=== PATIENT | female | born 1945 | race Caucasian/White ===

== ENCOUNTER 2016-09-17 14:33 | Inpatient (IN) ==
[2016-09-17] MEDS ORDERED: NS 1,000 ML IV ONE (16:10)
[2016-09-17] MEDS ORDERED: ZOFRAN IV ONE (16:14)
[2016-09-17] MEDS ORDERED: MORPHINE IV ONE (16:14)
[2016-09-17 16:43] LABS: URINE CULTURE NEEDED? NO; URINE MICRO REVIEW NEEDED? NO; URINE SOURCE CLEAN CATCH
[2016-09-17 16:46] LABS: BILIRUBIN URINE NEGATIVE (NEGATIVE); BLOOD URINE NEGATIVE (NEGATIVE); COLOR YELLOW; GLUCOSE URINE NEGATIVE (NEGATIVE); LEUKOCYTES URINE NEGATIVE (NEGATIVE); NITRITE URINE NEGATIVE (NEGATIVE); PH URINE 5.5; PROTEIN URINE NEGATIVE (NEGATIVE); SP GRAVITY URINE 1.027; TURBIDITY URINE HAZY (CLEAR); UR EPITHELIAL CELLS >10 /HPF (<10); URINE BACTERIA NEGATIVE /HPF; URINE RBC <10 /HPF (<10); URINE WBC <10 /HPF (<10); UROBILINOGEN URINE NORMAL (NORMAL)
[2016-09-17 17:01] LABS: BASO% 0.2 % (0.0-0.8); EOS% 1.6 % (0.0-10.0); HEMATOCRIT 44.9 % (37.0-47.0); HEMOGLOBIN 14.8 g/dL (12.0-16.0); LYMPH# 0.29 X1000 (1.2-3.4); LYMPH% 4.7 % (20.5-51.1); MANUAL DIFF NEEDED? NO; MCH 29.9 PG (27-31); MCV 90.7 FL (81-99); MONO# 0.34 X1000 (0.11-0.59); MONO% 5.5 % (1.7-9.3); MPV 9.7 FL (7.4-10.4); PLT 211 X1000 (130-400); RBC 4.95 XMIL (4.2-5.4)
[2016-09-17 17:06] LABS: AGAP 10; ALBUMIN 4.2 g/dL (3.5-5.0); ALKALINE PHOSPHATASE 73 U/L (32-104); AMYLASE 96 U/L (20-200); BUN 23 mg/dL (8-22); CALCIUM 8.8 mg/dL (8.8-10.2); CHLORIDE 99 mmol/L (98-107); COSMO 273; GOT 26 U/L (10-30); GPT 22 U/L (10-36); LIPASE 87 U/L (13-60); POTASSIUM 4.2 mmol/L (3.5-5.1); SODIUM 135 mmol/L (136-145); TCO2 26 mmol/L (25-35); TOTAL BILIRUBIN 0.53 mg/dL (0.20-1.00); TOTAL PROTEIN 6.7 g/dL (6.3-8.3)
[2016-09-17] MEDS ORDERED: SODIUM CHLORIDE 0.9% INJ ONE (17:24)
[2016-09-17] MEDS ORDERED: PEPCID IV ONE (17:24)
--- NOTE | 2016-09-17 17:52 | PROVIDER DOCUMENTATION ---
This chart was entered by Osmani Tesfaye Scribe, acting as scribe for Robson Hsu MD. HPI-Abdominal Pain/GI Problem - General Chief Complaint: Abdominal Pain Stated Complaint: ABD/BACK PAIN Time Seen by Provider: 09/17/16 15:57 Source: patient Allergies/Adverse Reactions: Patient Allergies Allergy/AdvReac Type Severity Reaction Status Date / Time codeine AdvReac Mild NAUSEA/VOMI Verified 09/17/16 15:46 TING meperidine [From Demerol] AdvReac Mild NAUSEA Verified 09/17/16 15:45 - History of Present Illness-ABD Nature of Presenting Problems: patient is a 71 y/o F that presents with abdominal pain and n/d x 5 to 6 days. Bloating and gas as well. No vomiting, fever/chills, or shortness of breath. Pain radiates to her back. History of diverticulitis, diverticulosis, and obstruction. feels like her previous obstructions minus shortness of breath. Abdominal Pain Onset Location: reports: RUQ, RLQ Pain Radiation: reports: back Quality of Pain: reports: cramping, pressure, sharp Severity in ED: reports: moderate Onset/Duration: reports: abrupt, 5 days ago Timing: reports: still present, constant, getting worse Activities at Onset: reports: none Modifying Factors: improves with: nothing Associated Symptoms: reports: back/neck pain, diarrhea, fever/chills, nausea. denies: constipation, cough, genitourinary problems, muscle aches, rash, shortness of breath, vomiting Similar Symptoms Previously?: Yes Recently seen or treated by another doctor?: No Review of Systems - Adult - REVIEW OF SYSTEMS - ADULT Constitutional: denies: chills, fever Eyes: reports: no symptoms reported Ears, Nose, Mouth & Throat: reports: no symptoms reported Cardiovascular: denies: chest pain, palpitations, syncope Respiratory: denies: shortness of breath, wheezing Gastrointestinal: reports: abdominal pain, diarrhea, nausea. denies: constipation, rectal bleeding Genitourinary: denies: dysuria, frequency, hematuria Musculoskeletal: reports: back pain. denies: joint pain, neck pain Integumentary: reports: no symptoms reported Neurological: reports: no symptoms reported Psychiatric: reports: no symptoms reported Endocrine: reports: no symptoms reported Hematologic/Lymphatic: reports: no symptoms reported Allergic/Immunologic: reports: no symptoms reported All Other Systems: Reviewed and Negative Past History - Adult - PAST MEDICAL HISTORY-ADULT Review of Records: reports: Nursing Assessment Review, Medications Reviewed Gastrointestinal: reports: diverticulosis, obstruction, other (diverticulitis) Physical Exam-General - PHYSICAL EXAM-ADULT Initial Vital Signs Reviewed: Yes - CONSTITUTIONAL General Appearance: alert, mild distress - EYES Eyes: PERRL/EOMI, pink conjunctivae - HEAD, EARS, NOSE, MOUTH & THROAT HENMT: normocephalic/atraumatic, moist mucous membranes, normal ENT inspection - NECK Neck: full range of motion, normal inspection - RESPIRATORY Respiratory: lungs clear, normal breath sounds, no respiratory distress, no accessory muscle use - CARDIOVASCULAR Cardiovascular: regular rate, rhythm, no edema, no murmur - GASTROINTESTINAL (ABDOMEN) Abdominal Exam: normal bowel sounds, soft, no organomegaly, no pulsatile mass, tenderness (right sided) - MUSCULOSKELETAL Back Exam: no CVA tenderness, no vertebral tenderness Extremity: normal range of motion, normal inspection, no pedal edema - SKIN Integumentary: normal color, warm/dry - NEUROLOGIC Neurologic: grossly normal, no motor/sensory deficits - PSYCHIATRIC Psych/Mental Status: normal mood/affect, normal thought content, normal thought process, oriented x 3 Progress - PLAN OF CARE/RESULTS Progress/Plan/Lab Results: Vital Signs - 8 hr 09/17/16 14:41 Temperature 98.8 F Pulse Rate 71 Respiratory Rate 20 Blood Pressure 109/55 O2 Sat by Pulse Oximetry 100 reeval pt with worsening pain now including the epigastric area. will admit for hydration pain management and observation to eval for partial sbo vs ilius and pancreatitis. pt and family agree with this plan. hospitalist notified pt also followed by dr bal will come to eval the pt in the ED Result Diagrams: 09/17/16 16:28 09/17/16 16:28 Departure - Departure Date of Disposition Decision: 09/17/16 Time of Disposition Decision: 18:15 DIAGNOSIS: Partial obstruction of small intestine Pancreatitis Qualifiers: Chronicity: acute Pancreatitis type: other Acute pancreatitis complication: no infection or necrosis Qualified Code(s): K85.80 - Other acute pancreatitis without necrosis or infection Disposition: ADMITTED INPATIENT 09 Certified Medical Emergency: Emergent Condition: Fair Referrals and Follow-Ups: Ancelmo Metcalf MD [Primary Care Provider] - - Critical Care Note This patient required my direct & personal management of CC.: No This chart was documented by the indicated scribe, (Osmani Tesfaye, Taty) and accurately reflects the services I performed and decisions made by me, Robson Hsu MD, as attested by the provider's signature.
--- NOTE | 2016-09-17 18:19 | Diag Imaging Result Doc PS360 ---
EXAM: CT ABD/PELVIS W/ IV CONT ONLY HISTORY: abd pain eval obstruction +h/o TECHNIQUE: Dose reduction protocol COMPARISON: 01/21/2015 FINDINGS: The gallbladder has been removed. Mild biliary ductal dilatation is slightly more prominent than on the prior exam. No other focal hepatic abnormality. Normal spleen, pancreas, and adrenal glands. Normal enhancement of the kidneys. No hydronephrosis. Normal aorta. There is stool throughout the colon. The appendix may have been removed. Nonspecific fluid-filled loops of small bowel. No free air. No abscess. The urinary bladder is distended and appears normal. The uterus is small or has been removed. Questionable soft tissue fullness about the rectum. IMPRESSION: 1.Cholecystectomy with mild biliary dilatation 2.Possible ileus 3.Constipation 4.Questionable rectal thickening 5.A preliminary report was given at 5:51 PM Electronically signed by Todd Vega 09/17/2016 6:16 PM
--- NOTE | 2016-09-17 19:08 | HISTORY AND PHYSICAL ---
PCP: Dr. Metcalf. CHIEF COMPLAINT: Abdominal pain, nausea but no vomiting, diarrhea. HISTORY OF PRESENT ILLNESS: The patient is a 71-year-old white female with a history of trouble with her GI tract on chronic MiraLAX presented to the emergency room after 2 days of diarrhea. The patient has not had any diarrhea since this morning but still having a lot of cramping pain with nausea. She was able to take Gatorade just fine. She afraid to eat. Has mild nausea. She came in because feeling like she is dehydrated. She denies taking any medications for diarrhea. She report having some chill but no fevers, denied eating anything out of the ordinary, denies having any sick contact. The patient has had this problem off and on for a number of years has been seeing Dr. Elizabeth who sent the patient to the [facility] and the last time she went up to the [facility] was over a year and a half ago. She had multiple surgeries to her abdomen 4 to be exact the last 1 about 15 years ago when she had the small bowel obstruction. They had to go in and lysed the adhesion, per the patient Dr. Galicia told her that her colon would twist and turn and he does not want anybody around her to operate on her and wants the [facility] to evaluate her and may perhaps to do the surgery up there. No other complaints. Her pain is somewhat under control with morphine that she was giving in the hospital. Nausea under control with Zofran. PAST MEDICAL HISTORY: 1. Hypothyroidism. 2. Recurrent irritable bowel syndrome alternate between diarrhea and constipation. PAST SURGICAL HISTORY: 1. She has a hysterectomy. 2. Oophorectomy. 3. Colectomy. 4. Abdominal adhesion lysis. ALLERGIES: The patient allergic to codeine and Demerol. FAMILY HISTORY: Was reviewed, was noncontributory. SOCIAL HISTORY: The patient denies tobacco, alcohol or drugs. HOME MEDICATIONS: 1. MiraLAX daily. 2. Synthroid. REVIEW OF SYSTEMS: 12 system were reviewed and were negative except for what is mentioned on HPI. PHYSICAL EXAMINATION: VITAL SIGNS: Blood pressure 100/54, pulse of 53, respirations 16, temperature 98.8 degrees, saturations of 100% on room air. GENERAL APPEARANCE: Thin, cachectic white female in mild distress. HEENT: Anicteric. Clear conjunctivae. NECK: Supple. No JVD. No bruit. CARDIOVASCULAR: S1, S2. Normal rate and rhythm. No murmur, rubs, or gallops. PULMONARY: Clear to auscultation bilaterally. GI: Soft, mild tender on the right lower quadrant. Hypoactive bowel sounds. MUSCULOSKELETAL: No clubbing, cyanosis, or edema. INTEGUMENT: Skin is dry. LABORATORY: White count 6.17, hemoglobin 14.8, hematocrit 44.9, platelets of 211,000. Chemistry, sodium 135, potassium 4.2, chloride 99, bicarb 26, BUN 23, creatinine 0.9, glucose of 81, lipase is mildly elevated at 87. CAT scan of the abdomen and pelvis did show some fluid level, no obstruction, no ileus. ASSESSMENT AND PLAN: This is a 71-year-old white female with a history of gastrointestinal issue admitted to the hospital for dehydration after she was having diarrhea and nausea unable to take much p.o. 1. Dehydration secondary to diarrhea and poor p.o. intake. Start the patient on IV fluids. Start her on a clear liquid diet. Keep patient NPO overnight. Consult Dr. Galicia in the morning. 2. Irritable bowel syndrome. Again as above, p.r.n. Center for pain. 3. Deep vein thrombosis prophylaxis. Put the patient on Lovenox. 4. Code status. The patient is a full code. 5. Hypothyroidism. Continue Synthroid. Will put the patient under observation and will consult GI in the morning as mentioned above. cc: Ancelmo Metcalf MD
[2016-09-17] MEDS ORDERED: LOVENOX SUBQ SCH (19:35)
[2016-09-17] MEDS ORDERED: NORCO-7.5 PO PRN (19:35)
[2016-09-17] MEDS ORDERED: ZOFRAN IV PRN (19:35)
[2016-09-17] MEDS: NS 1,000 ML IV SCH (20:22)
[2016-09-18 07:51] LABS: MANUAL DIFF NEEDED? NO
[2016-09-18 08:06] LABS: BASO% 0.7 % (0.0-0.8); EOS# 0.08 X1000 (0.0-0.7); HEMATOCRIT 38.6 % (37.0-47.0); HEMOGLOBIN 12.4 g/dL (12.0-16.0); LYMPH# 0.66 X1000 (1.2-3.4); LYMPH% 24.4 % (20.5-51.1); MCH 29.5 PG (27-31); MCHC 32.1 g/dL (33-37); MCV 91.7 FL (81-99); MONO# 0.32 X1000 (0.11-0.59); MONO% 11.9 % (1.7-9.3); MPV 10.2 FL (7.4-10.4); PLT 197 X1000 (130-400); RBC 4.21 XMIL (4.2-5.4)
[2016-09-18 08:12] LABS: AGAP 11; ALBUMIN 3.2 g/dL (3.5-5.0); ALKALINE PHOSPHATASE 87 U/L (32-104); BUN 15 mg/dL (8-22); CALCIUM 8.3 mg/dL (8.8-10.2); CHLORIDE 106 mmol/L (98-107); COSMO 281; GOT 72 U/L (10-30); GPT 65 U/L (10-36); SODIUM 141 mmol/L (136-145); TCO2 24 mmol/L (25-35); TOTAL BILIRUBIN 0.38 mg/dL (0.20-1.00); TOTAL PROTEIN 5.3 g/dL (6.3-8.3)
[2016-09-18] MEDS: PRILOSEC PO SCH (09:00)
[2016-09-18] MEDS: NS 1,000 ML IV SCH (10:14)
[2016-09-18] MEDS ORDERED: GOLYTELY PO ONE (14:00)
--- NOTE | 2016-09-18 16:28 | CONSULTATION ---
DATE OF CONSULTATION: 09/18/2016 REFERRING PHYSICIAN: Venkat Stallings MD PRIMARY CARE DOCTOR: Ancelmo Metcalf MD REASON FOR CONSULTATION: Abdominal pain. Severe constipation. Elevated liver enzymes. HISTORY OF PRESENT ILLNESS: Ms. Alberto is a 71-year-old female who has a known history of severe refractory constipation attributed to irritable bowel syndrome and multiple abdominal surgeries and adhesions who follows up with me as an outpatient. The patient also sees GI team at [facility] and she has been put on investigation constipation medication once daily. The patient has seen the [facility] team a year and a half ago. In the last 5 years since I have been seeing her, the patient has been struggling with chronic constipation despite being on multiple laxatives. She continues on Linzess and MiraLAX, but continues to present as an outpatient with severe fecal impactions requiring colonic lavage and disimpactions. During this admission, the patient says she was having overflow diarrhea since , along with bloating, nausea, decreased p.o. intake, lack of appetite and worsening abdominal pain in the periumbilical region. She had imaging done in the hospital which showed evidence of stool throughout the colon, prominent biliary ductal system and possible fullness in the rectum. No evidence of any small bowel obstruction. She had labs done in the hospital which showed evidence of normal liver enzymes on the day of admission, but then next day, the liver enzymes showed a small bump to AST of 72, ALT of 65, alkaline phosphatase of normal, 87, total bilirubin 0.38 and her lipase was also noted to be 87 on admission. Amylase of 96. Going back in the records, the last lipase was checked in 2013January 09 which was normal at 37. Her liver enzymes last time were checked day before which was normal and going back to 2011, the liver enzymes were normal. The patient has passed a few pellets while in the hospital. She is still on NPO. She denies any blood in the stools or vomiting blood. PAST MEDICAL HISTORY: 1. Hypothyroidism. 2. Irritable bowel syndrome. 3. Severe constipation. PAST SURGICAL HISTORY: 1. Hysterectomy. 2. Oophorectomy. 3. Partial colectomy. 4. Small bowel surgery for obstruction. 5. Adhesiolysis. ALLERGIES: Codeine and Demerol. FAMILY HISTORY: Noncontributory. SOCIAL HISTORY: She is . Her is very supportive. The patient denies any alcohol, tobacco or illicit drugs. MEDICATIONS AT HOME: 1. MiraLAX twice daily 17 g. 2. Linzess. 3. Synthroid. 4. Prilosec. MEDICATIONS IN THE HOSPITAL: 1. Tylenol. 2. Lovenox. 3. Hydrocodone/acetaminophen. 4. IV fluids at 30 mL/hour. 5. Prilosec 40 mg daily. 6. Zofran 4 mg IV every 4 hours as needed. 7. She just started on clear liquid diet as we are starting her on GoLYTELY today. REVIEW OF SYSTEMS: Denies any fevers, rigors, chills, chest pain, shortness of breath, dyspnea at rest. Denies any genitourinary or neurologic complaints. Denies any history of nausea, vomiting, vomiting blood, passing blood in the stools. Denies any fevers, rigors or chills. PHYSICAL EXAMINATION: Vital signs: Temperature 98 degrees, pulse rate 52, respiratory 12, blood pressure of 106/50, saturating 100% room air. Body weight 113 pounds 11.2 ounces, BMI 16 kg. General Appearance: Thinly built, lying in bed, in no acute distress. HEENT: No pallor. No icterus. Pupils equal, reactive to light and accommodation. Neck: Supple. Chest: Decreased breath sounds. Cardiac: Regular rhythm and rate with no murmur. Abdomen: Discomfort in the periumbilical region, bloating sensation. No rebound or guarding. No hepatosplenomegaly. Extremities: No cyanosis, clubbing, edema. Neurologic: She is alert, awake, oriented. LABORATORY AND IMAGING: Her hemoglobin and hematocrit is 12.4 and 38.6, white count 2.7, platelet count of 197,000, MCV of 91.7. Sodium 141, potassium 4, chloride 106, bicarb 24, anion gap of 11, BUN of 15, creatinine 1.9, glucose of 75, calcium is 8.3, total bilirubin is 0.38, AST 72, ALT 65, alkaline phosphatase 87, total protein 5.3. Albumin of 3.2, amylase of 96, lipase of 87, urinalysis showing some epithelial cells. CT scan on 09/17/2016 showed: 1) cholecystectomy with mild biliary dilation. 2) Possible ileus. 3) Constipation. 4) Questionable rectal thickening. No hydronephrosis. Normal aorta. Stool throughout the colon. No abscess. IMPRESSION AND PLAN: 1. Irritable bowel syndrome with severe constipation. Admitted with impaction. 2. Mildly elevated enzymes of acute onset with mildly elevated lipase noted on admission. Unclear etiology. Could be the patient has some biliary sludge which hopefully she will spontaneously clear, but we will also need to evaluate if the origin is from the small bowel or large bowel because of overstretching. 3. Abdominal scarring from prior surgeries causing contribution toward worsening constipation. 4. Patient on a research drug from [facility], for constipation. RECOMMENDATIONS: 1. We will start patient on clear liquid diet. 2. We will start the patient on GoLYTELY 1 gallon today. 3. We will keep her on IV fluids, IV proton pump inhibitors and IV antiemetics and IV pain control. 4. We will give her a soapsuds enema, two now and 1 at bedtime. 5. The patient will be scheduled for esophagogastroduodenoscopy and colonoscopy tomorrow if she continues to have symptoms and to help with the disimpaction. The patient also wants to possibly pursue further workup at the [facility]. In that regard. She will call the [facility] today to schedule an appointment. 6. The patient and family have decided that if she opens up her bowels today, then she would rather do esophagogastroduodenoscopy colonoscopy as an outpatient. We will schedule for that, but if she continues to have intolerance to the bowel prep and continues to have nausea, vomiting and unable to move her bowels, then we would rather do this as an inpatient. The risks, benefits, indications, alternatives to the procedure were discussed with the patient and family at bedside. All questions answered. cc: MD Ancelmo Olsen MD Raphael K. Quansah, MD
--- NOTE | 2016-09-18 17:14 | PROGRESS NOTE ---
DATE: 09/18/2016 SUBJECTIVE: Today Ms. Alberto refers to be doing fine. She has been going pretty often to the bathroom because she has been drinking the GoLYTELY. She does have mild abdominal discomfort. OBJECTIVE: Vital signs: Blood pressure is 111/54, pulse of 52, respirations 14, temperature is 98.0 degrees. General: Ms. Alberto is a 71-year-old female. She was in bed, did not seems to be in a remarkable distress. HEENT: Mucosa is pink and moist. Anicteric. Acyanotic. Neck: Supple. Chest: Good air entry bilaterally. No crepitations. No rhonchi. Cardiovascular: Regular rate and rhythm. Abdomen: Soft. Mildly tender in the right lower quadrant. There is hypoactive bowel sounds. Extremities: No pedal edema. FLORAL ASSOCIATE: Patient is alert and oriented x4. There is no focal neurological deficit. LABORATORY DATA: WBC is 2.70, hemoglobin is 12.4, platelet count of 197,000. Chemistry is reviewed, unremarkable except for mild liver enzymes elevation, lipid panel is completely fine, lipase has normalized. CT scan of the abdomen and pelvis which was done on admission does show cholecystectomy what might be a dilation, possible ileus, constipation, questionable rectal thickening. ASSESSMENT: 1. Rectal thickening. Etiology is clear. 2. Constipation with ileus. 3. History of irritable bowel syndrome. 4. Hypothyroidism. PLAN: Is we are going continue with the current symptomatic approach. Patient has been evaluated by GI. There is a plan for EGD and colonoscopy. Will follow up with further recommendations. cc: Venkat Stallings MD
[2016-09-18] MEDS: TYLENOL PO PRN (23:24)
[2016-09-19 07:44] VITALS: BP 117/56
[2016-09-19] MEDS: NS 1,000 ML IV SCH ×2 (08:38→17:16)
[2016-09-19] MEDS: PRILOSEC PO SCH (10:38)
[2016-09-19] MEDS: TYLENOL PO PRN (10:54)
[2016-09-19 14:42] LABS: HEPATITIS PROFILE ACUTE SEE COMMENTS
--- NOTE | 2016-09-19 14:49 | PROGRESS NOTE ---
DATE: 09/19/2016 SUBJECTIVE: Today Ms. Parker refers to be doing fine. She has been having some dark loose bowels from the preparation for the colonoscopy. OBJECTIVE: Vital Signs: Blood pressure is 117/56, pulse of 44, respiration is 12, temperature 97.5 degrees. General: Ms. Alberto is a 71-year-old female. She is sitting up in the bed, in no distress. HEENT: Mucosa is pink and moist. Anicteric. Acyanotic. Neck: Supple. Chest: Clear. Cardiovascular: Regular rate and rhythm. Abdomen: Soft. Extremities: No pedal edema. CLINICAL DATA SPECIALIST: Patient is alert and oriented x4. No focal neurological deficit. DIAGNOSTIC STUDIES: CT scan of the abdomen which was done on presentation shows constipation and possible ileus. IgG subclass is unremarkable. ADITYA is also completely negative. LABORATORY DATA: None for today. ASSESSMENT: 1. Rectal thickening. Etiology is unclear. 2. Constipation with ileus. 3. History of irritable bowel syndrome. 4. Hypothyroidism. 5. 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 6. Multiple abdominal surgeries in the past. 7. Mild transaminitis. So today the plan is for Ms. Alberto to get an EGD and colonoscopy, was still pending. Dr. Negrete will be the one to do the procedure, and then we will get further recommendations pending the findings. cc: Venkat Stallings MD
--- NOTE | 2016-09-19 15:54 | OPERATIVE NOTE ---
PROCEDURE DATE: PROCEDURE: 1. Colonoscopy. 2. Esophagogastroduodenoscopy with biopsy. PREOPERATIVE DIAGNOSIS: Abdominal pain. Constipation. POSTOPERATIVE DIAGNOSIS: 1. Normal colonoscopy. 2. Mild gastritis, biopsied for Helicobacter pylori. OPERATION IN DETAIL: After informed consent and adequate intravenous sedation, the scope was introduced through the esophagus, stomach and duodenum. Duodenum normal. Stomach shows mild erythema in the antrum. Biopsies were made for H. pylori. The scope was withdrawn. Esophagus is normal. At this point, digital rectal exam performed which was normal. The scope introduced into the rectum and advanced all the way into the cecum. Entire colon was normal. The scope was withdrawn. The patient tolerated the procedure and was transported back to recovery area in satisfactory condition. cc: Anabel Negrete MD
[2016-09-19] MEDS ORDERED: DIPRIVAN 1% ONE (15:56)
[2016-09-19] MEDS ORDERED: XYLOCAINE-MPF 2% ONE (16:00)
[2016-09-19] MEDS ORDERED: CARAFATE PO SCH (21:00)
--- NOTE | 2016-09-19 21:13 | DISCHARGE SUMMARY ---
ADMISSION DATE: 09/17/2016 DISCHARGE DATE: 09/19/2016 DISPOSITION: Home. FOLLOWUP: 1. Dr. Galicia. 2. Dr. Metcalf. CONSULTATIONS DURING THIS ADMISSION: GI was consulted. Patient was seen by Dr. Galicia. INVASIVE PROCEDURES DONE DURING THIS ADMISSION: 1. Esophagogastroduodenoscopy and colonoscopy were done. Colonoscopy was unremarkable. 2. EGD showed some gastritis. 3. Biopsies were taken. ADMISSION DIAGNOSES: 1. Dehydration. 2. Irritable bowel syndrome. 3. Hypothyroidism. DISCHARGE DIAGNOSES: 1. Constipation with ileus. 2. Irritable bowel syndrome. 3. Hypothyroidism. 4. 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 5. Mild transaminitis. 6. Gastritis. 7. History of multiple abdominal surgeries. DISCHARGE MEDICATIONS: 1. Carafate 1 g p.o. q.4. 2. Omeprazole 40 mg daily. PRESENTING COMPLAINT: Abdominal pain, nausea. HISTORY OF PRESENTING COMPLAINT: Ms. Alberto is a 71-year-old, very sweet and cheerful female who presented to the emergency department because of a 2-day history of abdominal pain. Patient does have an extensive history of constipation and abdominal surgeries in the past. She had been evaluated in August and follows up with Dr. Galicia. A CT scan on presentation did show some constipation with thickening of the rectum. She was admitted for bowel decompression. HOSPITAL COURSE: The patient did pretty well during the hospital stay. She was given multiple regimen of bowel preps and was scheduled for EGD colonoscopy which was successfully done by Dr. Negrete. The report has been reviewed. Constipation has improved and patient refers to feel a whole lot better and actually wants to go home. I do not see any reason to keep her in the hospital. Her IgG subclasses are normal. ADITYA is negative. Vitals today: Blood pressure is 117/56, pulse of 44, respiration is 12, temperature 97.5 degrees. Physical examination is completely unremarkable. The patient is therefore going to be discharged in very stable condition. She is going to follow up with Dr. Galicia and review the pathology that was taken from the stomach during the EGD. TIME SPENT FOR DISCHARGE: 36 minutes. cc: Venkat Stallings MD [facility]
== END 2016-09-19 19:03 | disposition home or self-care (01) ==
LOC: ED 14:33 → 4N 19:13 → SUATTDRO 19:13 → 4N 19:25
PROVIDERS: ATTEND Internal Medicine